=== PATIENT | male | born 2000 | race Hispanic/Latino ===

== ENCOUNTER 2024-04-27 13:53 | Emergency (ER) | payer SELFPAY ==
[~2024-04-27] VITALS: Ht 165.1 cm; Wt 63.5 kg
[2024-04-27 14:03] VITALS: BP 140/69
[2024-04-27 14:15] VITALS: BP 137/80
[2024-04-27] MEDS ORDERED: VIBRAMYCIN100 M2 PO (14:20)
[2024-04-27] MEDS ORDERED: MUPIROCIN2 % EX (14:20)
== END 2024-04-27 14:45 | disposition home or self-care (01) | DRG 603 ==
LOC: ED 13:53
DX: L03.115 Cellulitis of right lower limb (principal)